=== PATIENT | male | born 1960 | race Caucasian/White ===

== ENCOUNTER → 2020-03-12 | Outpatient (CLI) | payer BC ==
--- NOTE | 2020-03-06 13:45 | Diagnostic Imaging Report ---
PROCEDURE: US Scrotum. TECHNIQUE: Multiple real-time grayscale images were obtained over the scrotum in various projections bilaterally. INDICATION: Left inguinal lump. FINDINGS: Right testicle measures 4.9 x 2.7 x 3.9 cm and left testicle measures 4.4 x 2.2 x 3.4 cm. Both testes show homogeneous echotexture. No discrete testicular mass is detected. There is blood flow to both testes. There is a right epididymal head cyst measuring approximately 8 mm x 9 mm in size. Left epididymis is unremarkable. Small bilateral hydroceles are noted. There is no varicocele. Patient does appear to have a fat-containing left inguinal hernia. No herniated bowel loops are seen. IMPRESSION: 1. No evidence of testicular mass or vascular compromise. 2. Right epididymal head cyst. 3. Small bilateral hydroceles. 4. Fat-containing left inguinal hernia. Dictated by: Dictated on workstation # [id number]
[~2020-03-12] MED LIST: AMLO-250 PO; ASCO-262 PO; LOSA50TA63 PO; MULT-1136 PO; OMG1KC PO
== END ==
LOC: RAD 03-06 12:30
PROVIDERS: ATTEND Nurse Practitioner Family
DX: N50.3 Cyst of epididymis (principal); K40.90 Unilateral inguinal hernia, without obstruction or gangrene, not specified as recurrent; N43.3 Hydrocele, unspecified
CPT/HCPCS: 76870

== ENCOUNTER 2020-03-13 05:39 | Outpatient (RCR) | payer BC ==
[~2020-03-13] VITALS: Ht 185 cm; Wt 90.9 kg
== END 2020-03-13 14:45 | disposition home or self-care (01) ==
LOC: PREOP 05:39
PROVIDERS: ATTEND Surgery
DX: Z01.812 Encounter for preprocedural laboratory examination (principal); K40.90 Unilateral inguinal hernia, without obstruction or gangrene, not specified as recurrent; Z20.828 Contact with and (suspected) exposure to other viral communicable diseases
CPT/HCPCS: 87635

== ENCOUNTER 2020-03-18 11:03 | Day surgery (SDC) | payer BC ==
[2020-03-18] VITALS (11 sets, daily range): BP systolic 133–163; BP diastolic 85–101
[~2020-03-18] VITALS: Ht 185 cm; Wt 90.9 kg
[2020-03-18] MEDS ORDERED: ceFAZolin 2 GM IV Premixed 50 ML IV ONE (11:45)
[2020-03-18 12:00] LABS: BASOPHILS % (AUTO) 1 % (0-10); EOSINOPHILS # (AUTO) 0.1 10^3/uL (0.0-0.3); EOSINOPHILS % (AUTO) 2 % (0-10); HEMATOCRIT 49 % (40-54); HEMOGLOBIN 16.3 g/dL (13.3-17.7); LYMPHOCYTES # (AUTO) 1.8 10^3/uL (1.0-4.0); LYMPHOCYTES % (AUTO) 30 % (12-44); MEAN CORPUSCULAR HEMOGLOBIN 30 pg (25-34); MEAN CORPUSCULAR HGB CONC 34 g/dL (32-36); MEAN CORPUSCULAR VOLUME 91 fL (80-99); MEAN PLATELET VOLUME 10.1 fL (9.0-12.2); MONOCYTES # (AUTO) 0.5 10^3/uL (0.0-1.0); MONOCYTES % (AUTO) 8 % (0-12); NEUTROPHILS # (AUTO) 3.5 10^3/uL (1.8-7.8); NEUTROPHILS % (AUTO) 59 % (42-75); PLATELET COUNT 181 10^3/uL (130-400); WHITE BLOOD COUNT 5.9 10^3/uL (4.3-11.0)
[2020-03-18] MEDS ORDERED: oxyCODONE/APAP 5/325MG (PERCOCET 5) TABLET PO PRN (12:00)
[2020-03-18] MEDS ORDERED: morphine INJ 10 MG/ML 1ML (SYR OR VIAL) IVP PRN ×2 (12:00)
[2020-03-18] MEDS ORDERED: ACETAMINOPHEN 325 MG TABLET PO PRN (12:00)
[2020-03-18] MEDS ORDERED: ONDANSETRON 4 MG/2 ML (SDV) Z0FRAN IVP PRN ×2 (12:00→15:00)
--- NOTE | 2020-03-18 12:00 | Progress Note-Pre Operative ---
Pre-Operative Progress Note H&P Reviewed The H&P was reviewed, patient examined and no changes noted. Date Seen by Provider: Mar 18, 2020 Time Seen by Provider: 11:45 Date H&P Reviewed: Mar 18, 2020 Time H&P Reviewed: :45 Pre-Operative Diagnosis: sx reducible left ing hernia, screening o MANDIE CHANG MD Mar 18, 2020 12:00
[2020-03-18] MEDS ORDERED: HYDR-3817 PO (12:02)
--- NOTE | 2020-03-18 12:02 | Discharge Inst-Surgical ---
D/C Lap Instructions-BERNARDO New, Converted, or Re-Newed RX: RX on Chart Follow Up Appt in 2 weeks Activity as tolerated No driving for 24 hours No driving while on pain medications Incentive Spirometry use every 2 hours while awake Regular Diet Symptoms to Report: Fever over 101 degree F, Nausea/Vomiting Infection Signs and Symptoms to report: Increased redness, Foul odor of wound, Increased drainage Bathing instructions: May shower Operative Area Clean/Dry; Keep incision clean/dry If any problems/questions: Contact your physician or go to Emergency Room MANDIE CHANG MD Mar 18, 2020 12:02
[2020-03-18] MEDS ORDERED: LIDOCAINE/EPI 1%-1:200,000 (XYLOCAINE) 30 ML VIAL ONE (12:12)
[2020-03-18] MEDS: LACTATED RINGERS 1,000 ML IV PRN ×2 (12:16→13:57)
[2020-03-18] MEDS ORDERED: fentaNYL INJECTION 100 MCG/2 ML AMP ONE ×2 (13:09→13:54)
[2020-03-18] MEDS ORDERED: MIDAZOLAM 2 MG/2 ML (VERSED) VIAL ONE (13:10)
[2020-03-18] MEDS ORDERED: ROCURONIUM 10 MG/ML 5 ML SYRINGE IV ONE (13:54)
[2020-03-18] MEDS ORDERED: ONDANSETRON 4 MG/2 ML (SDV) Z0FRAN ONE (13:54)
[2020-03-18] MEDS ORDERED: LIDOCAINE PF 2% 5 ML (XYLOCAINE) VIAL ONE (13:54)
[2020-03-18] MEDS ORDERED: proPOfol 200 MG/20 ML (DIPRIVAN) VIAL IV ONE (13:54)
[2020-03-18] MEDS ORDERED: SEVOFLURANE (ULTANE) 15 ML INHAL SOLN ONE ×3 (13:55→14:31)
[2020-03-18] MEDS ORDERED: NEOSTIGMINE 3 MG/3 ML VIAL ONE (13:59)
[2020-03-18] MEDS ORDERED: GLYCOPYRROLATE 0.2 MG/ML (ROBINUL) 2 ML VIAL ONE (13:59)
--- NOTE | 2020-03-18 14:39 | Progress Note-Post Operative ---
Post-Operative Progess Note Surgeon (s)/Building Official (s) Surgeon Dr. Alonso Lopez M.D. Building Official: Cristian Mancini MATERIALS INTERN Pre-Operative Diagnosis sx reducible left ing hernia, screening colo Post-Operative Diagnosis Left incarcerated indirect inguinal hernia, mild chronic stage II external and internal hemorrhoids, mild sigmoid diverticulosis, hyperplastic sigmoid colon polyp Procedure & Operative Findings Date of Procedure 03/18/20 Procedure Performed/Findings Laparoscopic left incarcerated inguinal hernia repair with mesh and colonoscopy with biopsy Anesthesia Type GET Estimated Blood Loss Estimated blood loss (mL): Minimal Specimens/Packing Specimens Removed 1) Sigmoid colon polyp biopsy CRISTIAN MANCINI MATERIALS INTERN Mar 18, 2020 14:39
--- NOTE | 2020-03-18 14:51 | Anesthesia-General Post-Op ---
General Patient Condition Mental Status/LOC: Same as Preop Cardiovascular: Satisfactory Nausea/Vomiting: Absent Respiratory: Satisfactory Pain: Controlled Complications: Absent Post Op Complications Complications None Follow Up Care/Instructions Patient Instructions None needed. Anesthesia/Patient Condition Patient Condition Patient is doing well, no complaints, stable vital signs, no apparent adverse anesthesia problems. No complications reported per nursing. MELINA DODSON CRNA Mar 18, 2020 14:51
[2020-03-18] MEDS ORDERED: HYDROmorphone 2 MG/ML VIAL (DILAUDID) ONE (14:54)
[2020-03-18] MEDS ORDERED: morphine INJ 10 MG/ML 1ML (SYR OR VIAL) IVP ONE (15:00)
[2020-03-18] MEDS ORDERED: HYDROmorphone 2 MG/ML VIAL (DILAUDID) IV ONE (15:00)
--- NOTE | 2020-03-18 15:45 | NUR ---
TO AMB SURG FROM PAR PER CART. ALERT, RATES LEFT GROIN/PELVIC PAIN 3. SKIN AFFIX INTACT TO X3 LAP ABD SURGICAL SITES, ICE PACK ON. SCROTAL SUPPORT IN PLACE. PO FLUIDS AND CRACKERS PROVIDED.
--- NOTE | 2020-03-18 16:04 | NUR ---
TAKING PO FLUIDS AND CRACKERS WITHOUT PROBLEM. PERCOCET 5/325 MG, ONE TAB, GIVEN PO FOR SURGICAL SITE PAIN RATED 3.
--- NOTE | 2020-03-18 16:45 | NUR ---
RESTING QUIETLY, STATES PAIN LEVEL IS DECREASING. RATES 1-2. NO CHANGE IN SITE ASSESSMENT.
--- NOTE | 2020-03-18 17:30 | NUR ---
INSTRUCTED ON INCENTIVE SPIROMETRY WITH RETURN DEMONSTRATION. ASSIST UP TO BR, GAIT STEADY, VOIDED, THEN ASSISTED BACK TO ROOM. NO CHANGE IN PAIN OR SITE ASSESSMENTS. STATES HE IS READY FOR DISMISSAL.
--- NOTE | 2020-03-18 20:36 | OPERATIVE REPORT ---
DATE OF SERVICE: 03/18/2020 ATTENDING PRIMARY CARE PHYSICIAN: Dr. Katt Patel. PREOPERATIVE DIAGNOSIS: Symptomatic incarcerated left inguinal hernia. POSTOPERATIVE DIAGNOSES: Symptomatic incarcerated left indirect inguinal hernia. Chronic stage II external and internal hemorrhoids, mild to moderate sigmoid diverticulosis, small hyperplastic polyp of the sigmoid colon. PROCEDURE: Laparoscopic incarcerated left indirect inguinal hernia repair with mesh. Colonoscopy with biopsy. SURGEON: Mandie Lopez MD. BRICKLAYER SEWER: Cristian Trejo APRN. ANESTHESIA: General endotracheal. ESTIMATED BLOOD LOSS: Minimal. FINDINGS: Symptomatic incarcerated left indirect inguinal hernia. Chronic stage II external and internal hemorrhoids, mild to moderate sigmoid diverticulosis, small hyperplastic polyp of the sigmoid colon. DISPOSITION: The patient tolerated the procedure well. INDICATIONS: The patient is a 59-year-old male who was referred to the office for pain and swelling in the left inguinal region. He reports that he does do a significant amount of working in general around the house and states that he may have overdone physical activity approximately a month ago and then developed a strain as well as the pain as well as a palpable bulge in the left inguinal region. He was examined in the office and found to have a reducible inguinal hernia at that time; however, upon examination before surgery today, this was incarcerated. He is otherwise doing well and tolerating a regular diet and having normal bowel movements. He is also in need of a screening colonoscopy. He states that his last colonoscopy was 10 years ago. He is otherwise doing well, does not report any major issues of diarrhea nor constipation as well as no red blood per rectum nor any dark tarry stools. DESCRIPTION OF PROCEDURE: The patient was brought to the operating room, laid supine on the table. After adequate IV pain and sedative medications and general endotracheal intubation, the abdomen was prepped and draped in standard surgical fashion. A 0.5% Marcaine with epinephrine was used to anesthetize overlying skin in left upper abdominal quadrant and transverse skin incision made using 15 blade. The infraumbilical rim was anesthetized using 0.5% Marcaine with epinephrine and a sharp towel clamp was applied and the abdominal wall retracted anteriorly and a Veress needle inserted with low opening pressure of 0 mmHg. The abdomen was insufflated to 15 mmHg pressure and the Veress needle removed and a 10 mm XL trocar placed followed by a 10 mm 45-degree angle laparoscope visualizing the peritoneal cavity. A 4-quadrant abdominal exploration was performed. There was a left indirect inguinal hernia, which was incarcerated with just omentum. There was no right inguinal hernia component. There were no ischemic changes. Under direct visualization, we then proceeded to place bilateral 5 mm ports after the skin and peritoneal lining were anesthetized using 0.5% Marcaine with epinephrine and transverse skin incision was made using a 15 blade. The patient was then placed in Trendelenburg position. The peritoneal lining was then opened starting laterally using a Sonicision towards the conjoined tendon and inguinal ligament laterally. We then proceeded medially towards Artie's ligament. We then proceeded with our inferior dissection encompassing the entire hernia sac. The cord and its surrounding contents identified and spared throughout the process. Good hemostasis was observed and 3DMax polypropylene mesh was placed into the peritoneal cavity and tacked to Artie's ligament medially with absorbable tacks and to conjoined tendon laterally. The peritoneal lining was then placed over the mesh and a few absorbable tacks placed to keep this in place with visualization of good hemostasis. The 10 mm port site fascia and peritoneum were then closed under direct visualization using a Jose-Dano device and 0 Vicryl suture. The abdomen was desufflated and remaining ports removed. All skin incisions were closed using 4-0 Monocryl running subcuticular sutures. Wounds were then cleaned and covered with Dermabond. The patient was then placed in frog leg position and a digital rectal examination was performed, which revealed mild chronic stage II external and internal hemorrhoids, not actively edematous nor inflamed and no bleeding. Normal sphincter tone was felt and there were no palpable masses. The endoscope was then intubated in the anus and rectum gently insufflated. The endoscope was then advanced through the valves of Nguyen of the rectum with no polyps or any neoplasms identified. Through the sigmoid colon, mild to moderate sigmoid diverticulosis identified. There were no mucosal inflammatory changes to indicate any active diverticulitis. The endoscope was then slowly advanced and a small hyperplastic polyp approximately 2 mm in size in the sigmoid colon identified. This was biopsied using forceps. The endoscope was then advanced through the remainder of the descending, transverse and ascending colon to the cecum. These segments were normal. There were no other lesions identified. The endoscope was then slowly withdrawn while taking a second look and suctioning of residual air with no additional findings. The patient tolerated the procedure well. We will start IV normal pain medication as well as a clear liquid diet. Once he is tolerating clears, has good pain control with oral pain medications, ambulating well, we will discharge him home. He will be instructed to do no heavy lifting or exertion for the next two weeks. We also recommend continued medical management with a high fiber diet with at least 30 grams of fiber daily to promote soft stools on a daily basis. If he is asymptomatic, he does not need another colonoscopy for another 10 years. Job ID: [id number] DocumentID: [id number] Dictated Date: 03/18/2020 14:51:28 Junior Designer Date: 03/18/2020 20:36:29 Dictated By: MANDIE LOPEZ MD
== END 2020-03-18 17:45 | disposition home or self-care (01) ==
LOC: SDC 11:03
PROVIDERS: ATTEND Surgery
DX: K40.30 Unilateral inguinal hernia, with obstruction, without gangrene, not specified as recurrent (principal); D12.5 Benign neoplasm of sigmoid colon; K64.1 Second degree hemorrhoids; K57.30 Diverticulosis of large intestine without perforation or abscess without bleeding; I10 Essential (primary) hypertension; Z79.899 Other long term (current) drug therapy
CPT/HCPCS: 45380; 49650; 85025; 87081; 88305; C1781; 36415